=== PATIENT | male | born 1980 | race Caucasian/White ===

== ENCOUNTER → 2021-03-06 | Outpatient (CLI) | payer OTHER ==
--- NOTE | 2021-04-01 18:37 | SLEEP ---
[place] [address] SLEEP STUDY REPORT Name: ARLETJORGE AGEMINI Savage I Room: [facility]#: [id number] Admission: 03/06/21 Attend Phys: Bismark Minaya MD Discharge: Date of : 82 Report #: [id number] THIS REPORT FOR: cc: Guy Hardy James A. DO Pervez, Adeel MD ~ DATE OF STUDY: 03/07/2021 HOME SLEEP STUDY INTERPRETATION: Total duration of the study is 562 minutes. During this time duration, we recorded a very large number of sleep-related respiratory events. These included 512 obstructive apneas in addition to 34 hypopneas, 6 mixed apneas and 9 central apneas. There is a severe increase in overall apnea-hypopnea index to 65.8. Body position data indicates the patient was observed in the supine position for 415 minutes, the rest of the time the patient was in other positions. There is no obvious positional variation. There is severe nocturnal hypoxemia. The patient spent 111 minutes below an O2 saturation of 90%, out of which 39 minutes were spent below an O2 saturation of 85%. The lowest recorded O2 saturation is 68%. Mean heart rate is 79. IMPRESSION: Severe obstructive sleep apnea with an apnea-hypopnea index of 65.8 with severe nocturnal hypoxemia as described above. The patient spent 111 minutes below an O2 saturation of 90%. The lowest recorded O2 saturation is 68%. There is no obvious positional variation. RECOMMENDATIONS: Considering the severity of his sleep apnea as well as significant nocturnal hypoxemia, I recommend proceeding to an in-lab sleep study for positive airway pressure titration rather than the use of a CPAP auto-titrated device. His entire sleep study was reviewed by board certified sleep physician. <ELECTRONICALLY SIGNED> By: Bismark Minaya MD 04/01/21 [id number] Minaya MD /nt
== END ==
LOC: M.PUL 10:37
PROVIDERS: ATTEND Internal Medicine Critical Care Medicine
DX: G47.33 Obstructive sleep apnea (adult) (pediatric) (principal); G47.19 Other hypersomnia; R09.02 Hypoxemia; R68.89 Other general symptoms and signs; E66.01 Morbid (severe) obesity due to excess calories